=== PATIENT | male | born 1970 | race Two or more races ===

== ENCOUNTER 2020-07-22 21:13 | Emergency (ER) | payer SELFPAY ==
[~2020-07-22] VITALS: Ht 182.9 cm; Wt 82.0 kg
[2020-07-23] MEDS ORDERED: FAMOTIDINE 20MG/2ML VIAL IV STA (00:21)
[2020-07-23] MEDS ORDERED: KETOROLAC 30MG/ML VIAL IV STA (00:21)
[2020-07-23] MEDS ORDERED: ONDANSETRON HCL 4MG/2ML INJ IV STA (00:21)
[2020-07-23] MEDS ORDERED: SODIUM CHLORIDE 0.9% 1,000 ML IV ONE (00:30)
[2020-07-23 00:51] LABS: BASOPHILS % 0.8 % (0.0-2.0); HEMATOCRIT. 47.7 % (42.0-52.0); HEMOGLOBIN. 15.9 g/dL (14.0-18.0); LYMPHOCYTES % 12.7 % (20.0-50.0); MEAN CORPUSCULAR HEMOGLOBIN 32.4 pg (28.0-32.0); MEAN CORPUSCULAR VOLUME 96.8 fL (80.0-94.0); MEAN PLATELET VOLUME 7.9 fl (7.4-10.4); MONOCYTES % 6.9 % (2.0-8.0); NEUTROPHILS % 78.6 % (40.0-76.0); PLATELET 227 x1000/uL (130-400); RED BLOOD CELL COUNT 4.92 mill/uL (4.7-6.1); RED CELL DISTRIBUTION WIDTH 12.9 % (11.6-14.6)
[2020-07-23 00:57] LABS: CHLORIDE 108 mEq/L (98-107)
[2020-07-23] MEDS ORDERED: IOHEXOL-300 100 ML BOTTLE ONE (01:56)
[2020-07-23] MEDS ORDERED: ONDA4TAB5 MT (05:23)
[2020-07-23] MEDS ORDERED: PROT20 MT (05:23)
[2020-07-23 06:30] VITALS: BP 131/62
== END 2020-07-23 07:35 | disposition home or self-care (01) ==
LOC: ER 21:13
DX: K20.90 Esophagitis, unspecified without bleeding (principal); R03.0 Elevated blood-pressure reading, without diagnosis of hypertension; R74.01 Elevation of levels of liver transaminase levels; Z87.19 Personal history of other diseases of the digestive system
CPT/HCPCS: 36415; 74177; 80053; 83690; 85025; 93005; 96361; 96374; 96375; 99285; J1885; J2405; J3490; J7030; Q9967

== ENCOUNTER 2020-08-10 19:04 | Emergency (ER) | payer MEDICAID ==
[~2020-08-10] VITALS: Ht 180.3 cm; Wt 84.0 kg
[~2020-08-10 19:04] MED LIST: ONDA4TAB5 MT; PROT20 MT
[2020-08-10] MEDS ORDERED: PANTOPRAZOLE SODIUM 40 MG/VIAL IV STA (19:38)
[2020-08-10] MEDS ORDERED: SODIUM CHLORIDE 0.9% 1,000 ML IV ONE (19:45)
[2020-08-10] MEDS ORDERED: METOCLOPRAMIDE HCL 10MG/2ML VIAL IV ONE (19:45)
[2020-08-10 20:36] LABS: BASOPHILS % 0.3 % (0.0-2.0); EOSINOPHILS % 0.6 % (0.0-5.0); HEMATOCRIT. 42.7 % (42.0-52.0); HEMOGLOBIN. 14.6 g/dL (14.0-18.0); LYMPHOCYTES % 16.1 % (20.0-50.0); MEAN CORPUSCULAR HEMOGLOBIN 32.8 pg (28.0-32.0); MEAN CORPUSCULAR VOLUME 96.2 fL (80.0-94.0); MEAN PLATELET VOLUME 8.4 fl (7.4-10.4); MONOCYTES % 12.8 % (2.0-8.0); NEUTROPHILS % 70.2 % (40.0-76.0); PLATELET 217 x1000/uL (130-400); RED BLOOD CELL COUNT 4.44 mill/uL (4.7-6.1); RED CELL DISTRIBUTION WIDTH 13.2 % (11.6-14.6)
[2020-08-10 20:39] LABS: CHLORIDE 104 mEq/L (98-107)
[2020-08-10 20:42] LABS: INR 1.1; PROTHROMBIN TIME 11.4 sec (9.6-11.0)
[2020-08-10 20:43] LABS: ETHANOL BLOOD < 10 mg/dL
[2020-08-10] MEDS ORDERED: VISCOUS LIDOCAINE 2% 15 ML UDC PO STA (21:55)
[2020-08-10] MEDS ORDERED: MAGNESIUM/ALUMINUM HYDROXIDE/SIMETHICONE 30ML UDC PO STA (21:55)
[2020-08-10] MEDS ORDERED: DICYCLOMINE HCL 10MG CAPSULE PO ONE (22:00)
[2020-08-10 22:26] LABS: CLARITY URINE CLEAR (CLEAR); COLOR URINE YELLOW (YELLOW); KETONES URINE TRACE (NEGATIVE); LEUKOCYTE ESTERASE URINE NEGATIVE (NEGATIVE); NITRITE URINE NEGATIVE (NEGATIVE); OCCULT BLOOD URINE NEGATIVE (NEGATIVE); PROTEIN URINE NEGATIVE (NEGATIVE); SPECIFIC GRAVITY URINE 1.022 (1.005-1.030)
[2020-08-10 22:32] VITALS: BP 119/70
[2020-08-10] MEDS ORDERED: ONDA4TAB11 PO (22:51)
[2020-08-10] MEDS ORDERED: DICY10SO PO (22:51)
[2020-08-10 22:56] LABS: *AMPHETAMINES SCREEN URINE PRESUMTIVE POSITIVE (NEGATIVE); *BARBITURATES SCREEN URINE NEGATIVE (NEGATIVE); *BENZODIAZEPINES SCREEN URINE NEGATIVE (NEGATIVE); *COCAINE SCREEN URINE NEGATIVE (NEGATIVE); METHADONE URINE SCREEN NEGATIVE (NEGATIVE); OPIATES URINE SCREEN NEGATIVE (NEGATIVE)
[2020-08-10 22:57] LABS: CANNABINOID URINE SCREEN PRESUMTIVE POSITIVE (NEGATIVE); PHENCYCLIDINE URINE SCREEN NEGATIVE (NEGATIVE)
== END 2020-08-10 23:14 | disposition home or self-care (01) ==
LOC: ER 19:04
DX: K29.70 Gastritis, unspecified, without bleeding (principal); K20.90 Esophagitis, unspecified without bleeding; F15.10 Other stimulant abuse, uncomplicated
CPT/HCPCS: 36415; 71045; 80053; 80305; 80320; 81003; 83690; 85025; 85610; 86850; 86900; 86901; 93005; 96361; 96374; 96375; 99285; C9113; J2765; J7030; G0480